=== PATIENT | female | born 1975 | race Caucasian/White ===

== ENCOUNTER 2019-02-27 06:02 | Emergency (ER) | payer MEDICAID ==
[~2019-02-27] VITALS: Ht 144.8 cm; Wt 59.0 kg
[2019-02-27 07:10] LABS: HEMATOCRIT. 40.7 % (36.0-48.0); HEMOGLOBIN. 13.8 g/dL (12.0-16.0); MEAN CORPUSCULAR HEMOGLOBIN 29.4 pg (28.0-32.0); MEAN CORPUSCULAR VOLUME 86.8 fL (81.0-99.0); PLATELET 329 x1000/uL (130-400); RED BLOOD CELL COUNT 4.69 mill/uL (4.2-5.4); RED CELL DISTRIBUTION WIDTH 13.8 % (11.6-14.6)
[2019-02-27 07:18] LABS: CHLORIDE 108 mEq/L (98-107)
[2019-02-27 07:21] LABS: HCG SCREEN NEGATIVE
[2019-02-27 07:45] LABS: PLATELET ESTIMATE NORMAL
[2019-02-27 08:55] VITALS: BP 157/98
[2019-02-27] MEDS ORDERED: IOHEXOL-350 100 ML BOTTLE ONE (09:36)
== END 2019-02-27 09:04 | disposition home or self-care (01) ==
LOC: ER 06:02
DX: R07.89 Other chest pain (principal); I10 Essential (primary) hypertension
CPT/HCPCS: 36415; 71045; 71275; 80053; 83880; 84484; 84703; 85025; 93005; 99284; Q9967